=== PATIENT | female | born 1985 | race Caucasian/White ===

== ENCOUNTER 2020-05-30 17:10 | Emergency (ER) | payer MEDICAID ==
[~2020-05-30] VITALS: Ht 167.6 cm; Wt 93.6 kg
[2020-05-30 17:39] VITALS: BP 131/87
[2020-05-30 17:44] LABS: BASOPHILS % (AUTO) 1 % (0-1); EOSINOPHILS % (AUTO) 1 % (1-7); LYMPHOCYTES % (AUTO) 48 % (22-44); MEAN CORPUSCULAR HEMOGLOBIN 31.8 pg (27.0-34.8); MEAN CORPUSCULAR HGB CONC 34.5 g/dL (32.4-35.8); MEAN PLATELET VOLUME 8.7 fL (7.4-10.4); MONOCYTES % (AUTO) 7 % (2-9); NEUTROPHILS % (AUTO) 43 % (42-75); PLATELET COUNT 188 x10^3/uL (130-400); RED BLOOD COUNT 4.49 x10^6/uL (3.82-5.3); RED CELL DISTRIBUTION WIDTH 12.4 % (9.6-15.2)
--- NOTE | 2020-05-30 17:47 | NUR ---
PT BROUGHT IN BY MOM DUE TO WELLCARE ADVISING PT NEEDS FURTHER EVAL. PER MOM PT HAS NOT BEEN MED COMPLIANT. PT HAVING AUDITORY HALLUCINATIONS WHILE RN IN ROOM. PT DENIES SI/HI. PT ANSWERING PERSON, PLACE AND TIME APPROPRIATELY. PT DENIES PHYSICAL COMPLAINT AT THIS TIME.
[2020-05-30 17:55] LABS: ALANINE AMINOTRANSFERASE 13 U/L (12-78); ALBUMIN 3.4 g/dL (3.4-5.0); ANION GAP 5 mmol/L (5-15); CALCIUM 9.1 mg/dL (8.5-10.1); CHLORIDE 105 mmol/L (98-107); CREATININE 0.75 mg/dL (0.55-1.02)
--- NOTE | 2020-05-30 18:05 | NUR ---
URINE REQUESTED FROM PT. PT STATES SHE HAS NO URINE RIGHT NOW. PT EDUCATED ON HOW TO PROVIDE A SAMPLE.
[2020-05-30 18:06] LABS: ALKALINE PHOSPHATASE 50 U/L (45-117); BILIRUBIN,TOTAL 0.4 mg/dL (0.2-1.0); TOTAL PROTEIN 6.6 g/dL (6.4-8.2)
[2020-05-30 18:56] LABS: MD SCAN
--- NOTE | 2020-05-30 19:06 | NUR ---
bedside report from marlys watters
--- NOTE | 2020-05-30 19:08 | NUR ---
per rafia young aprn to see patient
[2020-05-30] MEDS ORDERED: PALIPERIDONE PALMITATE 234 MG/1.5 ML IM ONE (19:30)
[2020-05-30] MEDS ORDERED: DIVALPROEX 250 MG TAB.ER.24H PO ONE (19:30)
[2020-05-30] MEDS ORDERED: PALIPERIDONE 3 MG TAB.ER.24 PO ONE (19:30)
--- NOTE | 2020-05-30 19:36 | NUR ---
PER TJ, PT MEDICATED AND TO BE DISCHARGED.
== END 2020-05-30 19:58 | disposition home or self-care (01) ==
LOC: ED 19:50
DX: F25.9 Schizoaffective disorder, unspecified (principal); Z72.9 Problem related to lifestyle, unspecified; F17.210 Nicotine dependence, cigarettes, uncomplicated; Z91.19 Patient's noncompliance with other medical treatment and regimen
CPT/HCPCS: 36415; 80053; 80299; 80320; 84443; 84703; 85025; 96372; 99284; 99406; J2426; 80329; 99283; G0480